=== PATIENT | female | born 1975 | race Caucasian/White ===

== ENCOUNTER → 2017-01-02 | Outpatient (CLI) | payer OTHER ==
--- NOTE | 2017-01-02 09:25 | REPMRS ---
Patient History The patient states she has not had a clinical breast exam in over a year. Family history of prostate cancer in paternal grandfather at age 90 and breast cancer in mother at age 66. Digital Mammo Screening Bilat: January 02, 2017 - Exam #: [id number] Bilateral CC and MLO view(s) were taken. Technologist: Millicent Almazan, Technologist No prior studies available for comparison. FINDINGS: There are scattered fibroglandular densities. Large coarse benign appearing calcifications are present.There is no evidence of cancer on this mammogram. ASSESSMENT: BI-RADS/ACR category 2 mammogram. Benign finding(s). Recommendation Routine screening mammogram of both breasts in 1 year (for women over age 40). This mammogram was interpreted with the aid of an FDA-approved computer-aided dectection system. Electronically Signed By: Ángel Green MD 01/02/17 0924
== END ==
LOC: M RAD 08:27
PROVIDERS: ATTEND Family Medicine
DX: Z12.31 Encounter for screening mammogram for malignant neoplasm of breast (principal); R92.8 Other abnormal and inconclusive findings on diagnostic imaging of breast

== ENCOUNTER 2018-07-28 08:31 | Day surgery (SDC) | payer OTHER ==
[2018-07-28] MEDS ORDERED: LR 1,000 ML IV ×2 (08:45→11:45)
[2018-07-28 09:11] LABS: HEMATOCRIT 42.3 % (36.0-47.0); HEMOGLOBIN 13.9 g/dl (12.0-15.5)
[2018-07-28] MEDS ORDERED: fentaNYL 100 MCG/2 ML INJECTION (J3010) As Ordered (09:25)
[2018-07-28] MEDS ORDERED: ONDANSETRON 4MG/2ML VIAL (J2405) As Ordered (09:25)
[2018-07-28] MEDS ORDERED: ROCURONIUM BROMIDE 50 MG/5 ML VIAL As Ordered (09:25)
[2018-07-28] MEDS ORDERED: KETOROLAC 60 MG/2 ML VIAL (J1885) As Ordered (09:25)
[2018-07-28] MEDS ORDERED: MIDAZOLAM INJ 2 MG/2 ML VIAL (J2250) As Ordered (09:25)
[2018-07-28] MEDS ORDERED: PROPOFOL 200 MG/20 ML VIAL As Ordered (09:25)
[2018-07-28] MEDS ORDERED: LIDOCAINE 2% INJ 100 MG/5 ML SDV (FOR ANES.) As Ordered (09:25)
[2018-07-28] MEDS ORDERED: dexameTHASONE 4 MG/ML 1ML VIAL (J1100) As Ordered (09:25)
[2018-07-28 09:43] LABS: CONTROL LINE HCG INT CTR LINE PRESENT; HCG, SERUM QUALITATIVE NEGATIVE (NEGATIVE)
[2018-07-28] MEDS ORDERED: METOCLOPRAMIDE INJ 10MG/2ML VIAL (J2765) As Ordered (10:31)
[2018-07-28] MEDS ORDERED: GLYCOPYRROLATE INJ 0.2 MG/ML 2 ML VIAL As Ordered (10:44)
[2018-07-28] MEDS ORDERED: HYDROmorphone HCL 2 MG/ML 1ML VIAL (J1170) As Ordered (10:44)
[2018-07-28] MEDS ORDERED: NEOSTIGMINE 10 MG/10 ML VIAL (J2710) As Ordered (10:44)
[2018-07-28] MEDS: BUPIVACAINE HCL 0.25% 30 ML VIAL As Ordered (11:10)
[2018-07-28] MEDS ORDERED: METOCLOPRAMIDE INJ 10MG/2ML VIAL (J2765) IV (11:45)
[2018-07-28] MEDS ORDERED: PERCOCET 5MG/325MG TAB PO (11:45)
[2018-07-28] MEDS ORDERED: fentaNYL 100 MCG/2 ML INJECTION (J3010) IV (11:45)
[2018-07-28] MEDS ORDERED: ONDANSETRON 4MG/2ML VIAL (J2405) IV (11:45)
[2018-07-28] MEDS ORDERED: MEPERIDINE INJ 25 MG/ML VIAL (J2175) IV (11:45)
== END 2018-07-28 12:30 | disposition home or self-care (01) ==
LOC: M SDC 08:31
DX: R10.2 Pelvic and perineal pain (principal); N94.10 Unspecified dyspareunia; F41.9 Anxiety disorder, unspecified; Z79.899 Other long term (current) drug therapy; E66.9 Obesity, unspecified
CPT/HCPCS: 49320

== ENCOUNTER → 2020-05-17 | Outpatient (CLI) | payer OTHER ==
[~2020-05-17] MED LIST: B-122500 PO; CITA40TA6 PO; CLAR10CA3 PO; D31000TA2 PO; FAMO20TA PO; MELO15TA28 PO; TRAM50TA2 PO
--- NOTE | 2020-05-17 10:28 | REPMRS ---
Patient History The patient states she has not had a clinical breast exam in over a year. Family history of breast cancer at age 66 in mother, prostate cancer at age 90 in paternal grandfather. Taking hormonal contraceptives for 27 years. Digital Woman Screen Mammo: May 17, 2020 - Exam #: [id number] Bilateral CC and MLO view(s) were taken. Technologist: Shellie Faustin, Technologist Prior study comparison: January 02, 2017, bilateral digital mammo screening bilat, performed at [facility]. FINDINGS: There are scattered fibroglandular densities. The Volpara volumetric breast density category is:B. There has been no change in the appearance of the mammogram from the prior studies. There is a mild amount of scattered fibroglandular density which is fairly symmetric. There is no interval development of dominant mass, architectural distortion, or grouped microcalcification suggestive of malignancy. 3-D tomosynthesis shows no additional findings. Assessment: BI-RADS/ACR category 1 mammogram. Negative Mammogram. Recommendation Routine screening mammogram of both breasts in 1 year (for women over age 40). This patient's Lifetime Breast Cancer Risk is estimated at 18.9 %. This mammogram was interpreted with the aid of an FDA-approved computer-aided dectection system. Electronically Signed By: Bhavesh Hinkle MD 05/17/20 [id number]
== END ==
LOC: M WHC 08:52
PROVIDERS: ATTEND Family Medicine
DX: Z12.31 Encounter for screening mammogram for malignant neoplasm of breast (principal); Z80.3 Family history of malignant neoplasm of breast; Z80.42 Family history of malignant neoplasm of prostate

== ENCOUNTER 2020-07-19 09:46 | Day surgery (SDC) | payer OTHER ==
[~2020-07-19] VITALS: Ht 177.8 cm; Wt 102.5 kg
[~2020-07-19 09:46] MED LIST changes: +LIDOCAINE 2% 100MG/5ML SDV (FOR ANES.) As Ordered ONE; +NS 1,000 ML IV ONE; +propofoL 200 MG/20 ML VIAL As Ordered ONE
--- NOTE | 2020-07-19 12:21 | ROOR ---
Patient Name: Candelaria Ramos Procedure Date: 07/19/2020 12:00 PM Date of : 1975 Age: 44 Room: [facility] Gender: Female Note Status: Finalized Procedure: Total Colonoscopy to Cecum + ileoscopy + Bx Indications: Change in bowel habits Providers: Jeff Mackey MD Referring MD: LULA COTTON MD Requesting Provider: Medicines: Monitored Anesthesia Care Complications: No immediate complications. Procedure: Pre-Anesthesia Assessment: - The heart rate, respiratory rate, oxygen saturations, blood pressure, adequacy of pulmonary ventilation, and response to care were monitored throughout the procedure. The Colonoscope was introduced through the anus and advanced to the terminal ileum, with identification of the appendiceal orifice and IC valve. The colonoscopy was performed without difficulty. The patient tolerated the procedure well. The quality of the bowel preparation was good. Findings: The perianal and digital rectal examinations were normal. Non-bleeding internal hemorrhoids were found during retroflexion. The hemorrhoids were small and Grade I (internal hemorrhoids that do not prolapse). No other significant abnormalities were identified in a careful examination of the remainder of the colon. The terminal ileum appeared normal. Biopsies for histology were taken with a cold forceps from the ascending colon, transverse colon and descending colon for evaluation of microscopic colitis. The exam was otherwise without abnormality. Impression: - Non-bleeding internal hemorrhoids. - The examined portion of the ileum was normal. - The examination was otherwise normal. - Biopsies were taken with a cold forceps from the ascending colon, transverse colon and descending colon for evaluation of microscopic colitis. - The exam was otherwise normal to the cecum. Recommendation: - Patient has a contact number available for emergencies. The signs and symptoms of potential delayed complications were discussed with the patient. Return to normal activities tomorrow. Written discharge instructions were provided to the patient. - High fiber diet. - Discharge patient to home. - Continue present medications. - Await pathology results. - Telephone GI clinic for pathology results in 1 week. - Repeat colonoscopy in 10 years for screening purposes. - Return to referring physician. - The findings and recommendations were discussed with the patient. Procedure Code(s): --- Professional --- 80748, Colonoscopy, flexible; with biopsy, single or multiple Diagnosis Code(s): --- Professional --- K64.0, First degree hemorrhoids R19.4, Change in bowel habit CPT copyright 2019 [employer]. All rights reserved. The codes documented in this report are preliminary and upon ripsaw grader review may be revised to meet current compliance requirements. Jeff Mackey MD Jeff Mackey MD 07/19/2020 12:21:05 PM Electronically signed by Jeff Mackey MD Number of Addenda: 0 Note Initiated On: 07/19/2020 12:00 PM Estimated Blood Loss: Estimated blood loss: none.
[2020-07-19 12:40] VITALS: BP 121/57
== END 2020-07-19 12:51 | disposition home or self-care (01) ==
LOC: M OPP 09:46
PROVIDERS: ATTEND Internal Medicine Gastroenterology
DX: K63.89 Other specified diseases of intestine (principal); K64.0 First degree hemorrhoids; R10.30 Lower abdominal pain, unspecified; K58.8 Other irritable bowel syndrome; Z79.899 Other long term (current) drug therapy

== ENCOUNTER → 2021-01-12 | Outpatient (CLI) | payer OTHER ==
[~2021-01-12] MED LIST changes: -LIDOCAINE 2% 100MG/5ML SDV (FOR ANES.) As Ordered ONE; -NS 1,000 ML IV ONE; -propofoL 200 MG/20 ML VIAL As Ordered ONE
[2021-01-12 13:54] LABS: BASO # 0.1 10^3/uL (0.0-0.2); BASO % 1.3 % (0.0-1.0); EOS # 0.2 10^3/uL (0.0-0.5); EOS % 3.5 % (0.0-3.0); HEMATOCRIT 44.1 % (36.0-47.0); HEMOGLOBIN 13.9 g/dl (12.0-15.5); LYMPH # 1.7 10^3/uL (1.5-5.0); LYMPH % 26.4 % (24.0-44.0); MEAN CORPUSCULAR HEMOGLOBIN 29.1 pg (27.0-33.0); MEAN CORPUSCULAR HGB CONC 31.5 g/dl (32.0-36.5); MEAN CORPUSCULAR VOLUME 92.5 fl (80.0-96.0); MONO # 0.4 10^3/uL (0.0-0.8); MONO % 6.3 % (2.0-8.0); NEUTROPHILS # 3.9 10^3/uL (1.5-8.5); NEUTROPHILS % 62.2 % (36.0-66.0); PLATELET COUNT, AUTOMATED 419 10^3/uL (150-450); RED BLOOD COUNT 4.77 10^6/uL (4.00-5.40); WHITE BLOOD COUNT 6.3 10^3/uL (4.0-10.0)
[2021-01-12 14:07] LABS: HEMOGLOBIN A1c 5.3 %
[2021-01-12 14:26] LABS: ALT/SGPT 27 U/L (12-78); BILIRUBIN,TOTAL 0.2 MG/DL (0.2-1.0); BLOOD UREA NITROGEN 13 MG/DL (7-18); CALCIUM LEVEL 9.4 MG/DL (8.5-10.1); CARBON DIOXIDE LEVEL 29 MEQ/L (21-32); CHLORIDE LEVEL 107 MEQ/L (98-107); CHOLESTEROL LEVEL 280 MG/DL (<200); CHOLESTEROL RISK RATIO 4.666 (<5); CREATININE FOR GFR 0.75 MG/DL (0.55-1.30); FREE T4 0.96 NG/DL (0.76-1.46); GLOMERULAR FILTRATION RATE > 60.0 (>58); GLUCOSE, FASTING 90 MG/DL (70-100); HDL CHOLESTEROL 60 MG/DL (>40); LDL CHOLESTEROL 187 MG/DL (<100); NON-HDL-C 220 MG/DL; POTASSIUM SERUM 4.4 MEQ/L (3.5-5.1); RHEUMATOID FACTOR QUANT < 10.0 IU/ML (<15.0); SODIUM LEVEL 140 MEQ/L (136-145); TOTAL PROTEIN 7.5 GM/DL (6.4-8.2); TRIGLYCERIDES LEVEL 163 MG/DL (<150)
[2021-01-12 14:27] LABS: TOTAL 25(OH) VITAMIN D 86.3 NG/ML (30.0-100.0)
[2021-01-12 14:30] LABS: ERYTHROCYTE SEDIMENTATION RATE 8 mm/hr (0-20)
[2021-01-13 14:08] LABS: ANTINUCLEAR ANTIBODIES DIRECT Negative (Negative)
== END ==
LOC: M PLALAB 09:32
PROVIDERS: ATTEND Psychiatry & Neurology Neurology
DX: E78.5 Hyperlipidemia, unspecified (principal); E11.9 Type 2 diabetes mellitus without complications; E55.9 Vitamin D deficiency, unspecified; R51.9 Headache, unspecified

== ENCOUNTER 2023-10-05 08:39 | Observation (INO) | payer OTHER, SELFPAY ==
[~2023-10-05] VITALS: Ht 177.8 cm; Wt 95.3 kg
[~2023-10-05 08:39] MED LIST changes: -D31000TA2 PO; +VITA100093 PO
[2023-10-05] MEDS ORDERED: TIZA2CAP PO (08:46)
[2023-10-05 09:36] LABS: BASO # 0.1 10^3/uL (0.0-0.2); BASO % 0.4 % (0.0-1.0); EOS # 0.1 10^3/uL (0.0-0.5); EOS % 0.8 % (0.0-3.0); HEMOGLOBIN 13.4 g/dl (12.0-15.5); LYMPH # 2.1 10^3/uL (1.5-5.0); LYMPH % 13.4 % (24.0-44.0); MEAN CORPUSCULAR HGB CONC 32.7 g/dl (32.0-36.5); MEAN CORPUSCULAR VOLUME 88.7 fl (80.0-96.0); MONO # 1.1 10^3/uL (0.0-0.8); MONO % 6.8 % (2.0-8.0); NEUTROPHILS # 12.2 10^3/uL (1.5-8.5); NEUTROPHILS % 78.2 % (36.0-66.0); PLATELET COUNT, AUTOMATED 448 10^3/uL (150-450); RED BLOOD COUNT 4.62 10^6/uL (4.00-5.40); WHITE BLOOD COUNT 15.6 10^3/uL (4.0-10.0)
[2023-10-05 10:06] LABS: HCG, SERUM QUALITATIVE NEGATIVE (NEGATIVE)
[2023-10-05 10:07] LABS: BLOOD UREA NITROGEN 10 MG/DL (9-23); CARBON DIOXIDE LEVEL 26 MMOL/L (20-31); CHLORIDE LEVEL 103 MMOL/L (98-107); CREATININE FOR GFR 0.66 MG/DL (0.55-1.30); GLOMERULAR FILTRATION RATE > 60.0 (>58); GLUCOSE, FASTING 97 MG/DL (60-100); POTASSIUM SERUM 4.5 MMOL/L (3.5-5.1); SODIUM LEVEL 137 MMOL/L (136-145)
[2023-10-05] MEDS ORDERED: ISOVUE-370 76% 100ML VIAL As Ordered ONE (10:26)
[2023-10-05] MEDS: GASTROGRAFIN SOLUTION 30ML PO SCH (12:27)
[2023-10-05] MEDS ORDERED: metroNIDAZOLE 500 MG in IV 1 EA IV ONE (14:35)
[2023-10-05] MEDS ORDERED: CIPROFLOXACIN 400 MG in IV 1 EA IV ONE (14:35)
[2023-10-05] MEDS ORDERED: TRAM50TA2 PO (15:14)
[2023-10-05] MEDS: ONDANSETRON 4MG 2ML VIAL IV ONE (15:15)
[2023-10-05] MEDS ORDERED: HOME MED LIST COMPLETE! XX SCH (15:15)
[2023-10-05] MEDS: MORPHINE 4 MG/ML 1ML VIAL IV PRN (15:15)
[2023-10-05] MEDS ORDERED: ONDANSETRON 4MG 2ML VIAL IV PRN (15:35)
[2023-10-05] MEDS: PANTOPRAZOLE 40MG VIAL IV SCH (16:15)
[2023-10-05] MEDS: NS 1,000 ML IV ONE ×2 (16:15→17:25)
[2023-10-05 17:00] VITALS: BP 126/81; TEMP 97.7; O2SAT 96
[2023-10-05] MEDS: MORPHINE 2 MG/ML 1ML VIAL IV PRN (17:28)
[2023-10-05] MEDS: PIPERACILLIN/TAZOBACTAM SOD 3.375 GM in D5W MINI-BAG PLUS 50 ML IV SCH (17:41)
[2023-10-05 20:24] VITALS: BP 118/61; TEMP 97.7; O2SAT 96
[2023-10-05 20:54] VITALS: BP 126/81; TEMP 98.2; O2SAT 96
[2023-10-06] MEDS: ACETAMINOPHEN TAB 650MG DOSE (2X325MG) PO PRN (01:11)
[2023-10-06 06:26] VITALS: BP 119/80; TEMP 98.1; O2SAT 99
[2023-10-06 06:27] LABS: HEMATOCRIT 38.4 % (36.0-47.0); HEMOGLOBIN 12.6 g/dl (12.0-15.5); MEAN CORPUSCULAR HEMOGLOBIN 29.2 pg (27.0-33.0); MEAN CORPUSCULAR HGB CONC 32.8 g/dl (32.0-36.5); MEAN CORPUSCULAR VOLUME 88.9 fl (80.0-96.0); PLATELET COUNT, AUTOMATED 391 10^3/uL (150-450); RED BLOOD COUNT 4.32 10^6/uL (4.00-5.40); WHITE BLOOD COUNT 11.3 10^3/uL (4.0-10.0)
[2023-10-06 07:10] LABS: BLOOD UREA NITROGEN 6 MG/DL (9-23); CALCIUM LEVEL 8.8 MG/DL (8.5-10.1); CARBON DIOXIDE LEVEL 28 MMOL/L (20-31); CHLORIDE LEVEL 105 MMOL/L (98-107); CREATININE FOR GFR 0.67 MG/DL (0.55-1.30); GLOMERULAR FILTRATION RATE > 60.0 (>58); GLUCOSE, FASTING 103 MG/DL (60-100); POTASSIUM SERUM 4.2 MMOL/L (3.5-5.1); SODIUM LEVEL 138 MMOL/L (136-145)
[2023-10-06] MEDS: ENOXAPARIN 40MG/0.4ML SYRINGE (J1650 PER 10MG) SC SCH (08:47)
[2023-10-06] MEDS ORDERED: CIPR-249 PO (11:12)
[2023-10-06] MEDS ORDERED: METR-265 PO (11:12)
[2023-10-06] MEDS ORDERED: OMEP40CA4 PO (11:13)
[2023-10-06] MEDS ORDERED: TRAM50TA2 PO (13:00)
== END 2023-10-06 14:45 | disposition home or self-care (01) ==
LOC: M ED 08:39 → INTOOBSV 15:34 → M ED INP 15:34 → M MS5PR 16:45
PROVIDERS: ADMIT Internal Medicine; ATTEND Internal Medicine
DX: A41.9 Sepsis, unspecified organism (principal); K57.32 Diverticulitis of large intestine without perforation or abscess without bleeding; Z79.2 Long term (current) use of antibiotics; Z79.899 Other long term (current) drug therapy; G89.29 Other chronic pain; M54.50 Low back pain, unspecified
CPT/HCPCS: 36415; 74177; 80048; 81001; 83605; 84703; 85025; 85027; 87040; 87086; 87635; 96365; 96366; 96375; 96376; 99285; C9113; J2405; J2543; Q9963; Q9967

== ENCOUNTER 2024-03-26 05:37 | Emergency (ER) | payer OTHER ==
[~2024-03-26] VITALS: Ht 177.8 cm; Wt 92.6 kg
[~2024-03-26 05:37] MED LIST changes: +CIPR-249 PO; +METR-265 PO; +OMEP40CA4 PO; +TIZA2CAP PO
[2024-03-26 06:29] LABS: BASO % 0.3 % (0.0-1.0); EOS # 0.2 10^3/uL (0.0-0.5); EOS % 1.6 % (0.0-3.0); HEMATOCRIT 39.8 % (36.0-47.0); HEMOGLOBIN 13.8 g/dl (12.0-15.5); LYMPH # 1.6 10^3/uL (1.5-5.0); LYMPH % 11.8 % (24.0-44.0); MEAN CORPUSCULAR HEMOGLOBIN 29.7 pg (27.0-33.0); MEAN CORPUSCULAR HGB CONC 34.7 g/dl (32.0-36.5); MEAN CORPUSCULAR VOLUME 85.6 fl (80.0-96.0); MONO # 0.9 10^3/uL (0.0-0.8); MONO % 6.2 % (2.0-8.0); NEUTROPHILS % 79.7 % (36.0-66.0); PLATELET COUNT, AUTOMATED 400 10^3/uL (150-450); RED BLOOD COUNT 4.65 10^6/uL (4.00-5.40); WHITE BLOOD COUNT 13.7 10^3/uL (4.0-10.0)
[2024-03-26 06:53] LABS: LIPASE 28 U/L (12-53)
[2024-03-26 06:55] LABS: ALBUMIN 3.7 G/DL (3.2-5.2); ALKALINE PHOSPHATASE 84 U/L (46-116); ALT/SGPT 18 U/L (7.0-40); AST/SGOT 8 U/L (<34); BILIRUBIN,DIRECT 0.2 MG/DL (<0.4); BILIRUBIN,TOTAL 0.7 MG/DL (0.3-1.2); BLOOD UREA NITROGEN 9 MG/DL (9-23); CALCIUM LEVEL 9.1 MG/DL (8.5-10.1); CARBON DIOXIDE LEVEL 23 MMOL/L (20-31); CHLORIDE LEVEL 104 MMOL/L (98-107); CREATININE FOR GFR 0.68 MG/DL (0.55-1.30); GLOMERULAR FILTRATION RATE > 60.0 (>58); GLUCOSE, FASTING 121 MG/DL (60-100); POTASSIUM SERUM 3.8 MMOL/L (3.5-5.1); SODIUM LEVEL 136 MMOL/L (136-145); TOTAL PROTEIN 7.1 G/DL (5.7-8.2)
[2024-03-26] MEDS: NS 1,000 ML IV ONE (07:35)
[2024-03-26] MEDS: KETOROLAC 30 MG/ML 1ML VIAL IV ONE (07:35)
[2024-03-26] MEDS: ACETAMINOPHEN *IV* 1,000 MG in IV 1 EA IV ONE (07:35)
[2024-03-26] MEDS ORDERED: fentaNYL 100 MCG/2 ML INJECTION IM ONE (08:10)
[2024-03-26 08:51] LABS: HCG, SERUM QUALITATIVE NEGATIVE (NEGATIVE)
[2024-03-26] MEDS ORDERED: ISOVUE-370 76% 100ML VIAL As Ordered ONE (08:56)
[2024-03-26] MEDS ORDERED: HOME MED LIST COMPLETE! XX SCH (10:45)
[2024-03-26 12:15] VITALS: BP 123/71; TEMP 97.2; O2SAT 96
[2024-03-26] MEDS: AUGMENTIN 875 MG TAB PO ONE (12:30)
[2024-03-26 13:55] LABS: APPEARANCE, URINE CLEAR (CLEAR); BACTERIA, URINE AUTO NEGATIVE (NEGATIVE); BILIRUBIN, URINE AUTO NEGATIVE (NEGATIVE); BLOOD, URINE BLOOD 2+ (NEGATIVE); COLOR, URINE YELLOW (YELLOW); GLUCOSE, URINE (UA) AUTO NEGATIVE (NEGATIVE); KETONE, URINE AUTO 2+ mg/dL (NEGATIVE); LEUKOCYTE ESTERASE, URINE AUTO NEGATIVE (NEGATIVE); MUCUS, URINE SMALL (NEGATIVE); NITRITE, URINE AUTO NEGATIVE (NEGATIVE); PROTEIN, URINE AUTO NEGATIVE (NEGATIVE); RBC, URINE AUTO 6 /HPF (0-3); SQUAMOUS EPITHELIAL CELL UR AU 6 /HPF (0-6); WBC, URINE AUTO 9 /HPF (0-3)
[2024-03-26 14:01] LABS: SPECIFIC GRAVITY URINE AUTO >1.060 (1.002-1.035)
[2024-03-26] MEDS ORDERED: AMOX875T PO (14:11)
== END 2024-03-26 14:30 | disposition home or self-care (01) ==
LOC: M ED 05:37
DX: K57.90 Diverticulosis of intestine, part unspecified, without perforation or abscess without bleeding (principal); I95.9 Hypotension, unspecified; K21.9 Gastro-esophageal reflux disease without esophagitis; K58.0 Irritable bowel syndrome with diarrhea; Z79.1 Long term (current) use of non-steroidal anti-inflammatories (NSAID); Z79.899 Other long term (current) drug therapy
CPT/HCPCS: 74177; 80048; 80076; 81001; 83690; 84703; 85025; 96374; 99283; J0131; J1885; Q9967

== ENCOUNTER 2024-06-12 09:16 | Inpatient (IN) | payer OTHER ==
[~2024-06-12] VITALS: Ht 177.8 cm; Wt 95.0 kg
[~2024-06-12 09:16] MED LIST changes: +AMOX875T PO
[2024-06-12] MEDS: ONDANSETRON 4MG 2ML VIAL IV ONE (10:03)
[2024-06-12] MEDS: MORPHINE 4 MG/ML 1ML VIAL IV ONE (10:04)
[2024-06-12 10:13] LABS: BASO # 0.1 10^3/uL (0.0-0.2); BASO % 0.3 % (0.0-1.0); EOS % 0.1 % (0.0-3.0); HEMATOCRIT 41.2 % (36.0-47.0); HEMOGLOBIN 14.3 g/dl (12.0-15.5); LYMPH # 1.3 10^3/uL (1.5-5.0); LYMPH % 7.4 % (24.0-44.0); MEAN CORPUSCULAR HEMOGLOBIN 29.5 pg (27.0-33.0); MEAN CORPUSCULAR HGB CONC 34.7 g/dl (32.0-36.5); MEAN CORPUSCULAR VOLUME 85.1 fl (80.0-96.0); MONO % 5.4 % (2.0-8.0); NEUTROPHILS # 15.2 10^3/uL (1.5-8.5); NEUTROPHILS % 86.3 % (36.0-66.0); PLATELET COUNT, AUTOMATED 542 10^3/uL (150-450); RED BLOOD COUNT 4.84 10^6/uL (4.00-5.40); WHITE BLOOD COUNT 17.6 10^3/uL (4.0-10.0)
[2024-06-12] MEDS ORDERED: ISOVUE-370 76% 100ML VIAL As Ordered ONE (10:23)
[2024-06-12 10:37] LABS: LIPASE 28 U/L (12-53)
[2024-06-12 10:39] LABS: AMYLASE 28 U/L (30-118)
[2024-06-12 10:40] LABS: ALBUMIN 3.3 G/DL (3.2-5.2); ALKALINE PHOSPHATASE 105 U/L (46-116); ALT/SGPT 15 U/L (7.0-40); AST/SGOT 10 U/L (<34); BILIRUBIN,DIRECT 0.3 MG/DL (<0.4); BILIRUBIN,TOTAL 0.7 MG/DL (0.3-1.2); BLOOD UREA NITROGEN 10 MG/DL (9-23); CALCIUM LEVEL 9.9 MG/DL (8.5-10.1); CARBON DIOXIDE LEVEL 22 MMOL/L (20-31); CHLORIDE LEVEL 99 MMOL/L (98-107); CREATININE FOR GFR 0.76 MG/DL (0.55-1.30); GLOMERULAR FILTRATION RATE > 60.0 (>58); GLUCOSE, FASTING 127 MG/DL (60-100); POTASSIUM SERUM 3.8 MMOL/L (3.5-5.1); SODIUM LEVEL 133 MMOL/L (136-145); TOTAL PROTEIN 7.6 G/DL (5.7-8.2)
[2024-06-12] MEDS: NS 1,000 ML IV ONE ×3 (11:08→14:34)
[2024-06-12] MEDS: PIPERACILLIN/TAZOBACTAM SOD 4.5 GM in D5W MINI-BAG PLUS 50 ML IV ONE (11:33)
[2024-06-12] MEDS ORDERED: RIBO25TA PO (11:54)
[2024-06-12] MEDS ORDERED: K 10100T PO (11:54)
[2024-06-12] MEDS ORDERED: HOME MED LIST COMPLETE! XX SCH (11:55)
[2024-06-12] MEDS: ACETAMINOPHEN 325 MG TAB PO PRN (12:16)
[2024-06-12] MEDS ORDERED: HYDROMORPHONE HCL 0.5 MG/ 0.5 ML SYRINGE IV PRN ×2 (14:05→14:20)
[2024-06-12] MEDS ORDERED: tiZANidine 4 MG TAB PO PRN (14:05)
[2024-06-12] MEDS ORDERED: traMADol 50 MG TAB PO PRN (14:05)
[2024-06-12] MEDS ORDERED: ONDANSETRON 4MG 2ML VIAL IV PRN (14:05)
[2024-06-12] MEDS ORDERED: PILL CUTTER 1 EACH XX PRN (14:10)
[2024-06-12] MEDS ORDERED: NALOXONE INJ 0.4MG/1ML VIAL IV PRN (14:20)
[2024-06-12] MEDS: NS 1,000 ML IV SCH (14:33)
[2024-06-12] MEDS: KETOROLAC 30 MG/ML 1ML VIAL IV ONE (14:34)
[2024-06-12] MEDS: PIPERACILLIN/TAZOBACTAM SOD 4.5 GM in D5W MINI-BAG PLUS 50 ML IV SCH (17:09)
[2024-06-12 17:25] VITALS: BP 117/60; TEMP 99.3; O2SAT 94
[2024-06-12] MEDS: KETOROLAC 30 MG/ML 1ML VIAL IV SCH (20:04)
[2024-06-12 20:07] VITALS: BP 131/70; TEMP 99.5; O2SAT 97
[2024-06-13 03:58] VITALS: BP 127/66; TEMP 99.5; O2SAT 96
[2024-06-13 04:05] VITALS: TEMP 98.6; O2SAT 96
[2024-06-13 07:25] LABS: BASO # 0.1 10^3/uL (0.0-0.2); BASO % 0.5 % (0.0-1.0); EOS # 0.1 10^3/uL (0.0-0.5); EOS % 0.9 % (0.0-3.0); HEMATOCRIT 35.5 % (36.0-47.0); LYMPH # 1.1 10^3/uL (1.5-5.0); LYMPH % 7.2 % (24.0-44.0); MEAN CORPUSCULAR HEMOGLOBIN 29.7 pg (27.0-33.0); MEAN CORPUSCULAR HGB CONC 34.1 g/dl (32.0-36.5); MEAN CORPUSCULAR VOLUME 87.2 fl (80.0-96.0); MONO # 1.2 10^3/uL (0.0-0.8); MONO % 8.2 % (2.0-8.0); NEUTROPHILS # 12.1 10^3/uL (1.5-8.5); NEUTROPHILS % 82.7 % (36.0-66.0); RED BLOOD COUNT 4.07 10^6/uL (4.00-5.40); WHITE BLOOD COUNT 14.6 10^3/uL (4.0-10.0)
[2024-06-13 07:27] LABS: HEMOGLOBIN 12.1 g/dl (12.0-15.5)
[2024-06-13 07:28] LABS: PLATELET COUNT, AUTOMATED 412 10^3/uL (150-450)
[2024-06-13 07:32] LABS: BLOOD UREA NITROGEN 6 MG/DL (9-23); CALCIUM LEVEL 8.3 MG/DL (8.5-10.1); CARBON DIOXIDE LEVEL 22 MMOL/L (20-31); CHLORIDE LEVEL 106 MMOL/L (98-107); CREATININE FOR GFR 0.57 MG/DL (0.55-1.30); GLOMERULAR FILTRATION RATE > 60.0 (>58); GLUCOSE, FASTING 84 MG/DL (60-100); POTASSIUM SERUM 3.7 MMOL/L (3.5-5.1); SODIUM LEVEL 137 MMOL/L (136-145)
[2024-06-13 12:00] VITALS: BP 133/62; TEMP 98.6; O2SAT 98
[2024-06-13 19:55] VITALS: BP 119/60; TEMP 99.3; O2SAT 96
[2024-06-14 04:00] VITALS: BP 126/69; TEMP 98.5; O2SAT 96
[2024-06-14 08:21] LABS: BASO % 0.3 % (0.0-1.0); EOS # 0.1 10^3/uL (0.0-0.5); EOS % 0.7 % (0.0-3.0); HEMATOCRIT 33.9 % (36.0-47.0); HEMOGLOBIN 11.8 g/dl (12.0-15.5); LYMPH # 1.1 10^3/uL (1.5-5.0); LYMPH % 7.7 % (24.0-44.0); MEAN CORPUSCULAR HEMOGLOBIN 29.6 pg (27.0-33.0); MEAN CORPUSCULAR HGB CONC 34.8 g/dl (32.0-36.5); MEAN CORPUSCULAR VOLUME 85.2 fl (80.0-96.0); MONO # 1.2 10^3/uL (0.0-0.8); MONO % 8.9 % (2.0-8.0); NEUTROPHILS # 11.1 10^3/uL (1.5-8.5); NEUTROPHILS % 81.5 % (36.0-66.0); PLATELET COUNT, AUTOMATED 410 10^3/uL (150-450); RED BLOOD COUNT 3.98 10^6/uL (4.00-5.40); WHITE BLOOD COUNT 13.6 10^3/uL (4.0-10.0)
[2024-06-14 08:49] LABS: BLOOD UREA NITROGEN < 5 MG/DL (9-23); CALCIUM LEVEL 8.6 MG/DL (8.5-10.1); CARBON DIOXIDE LEVEL 24 MMOL/L (20-31); CHLORIDE LEVEL 102 MMOL/L (98-107); CREATININE FOR GFR 0.62 MG/DL (0.55-1.30); GLOMERULAR FILTRATION RATE > 60.0 (>58); GLUCOSE, FASTING 89 MG/DL (60-100); POTASSIUM SERUM 3.4 MMOL/L (3.5-5.1); SODIUM LEVEL 136 MMOL/L (136-145)
[2024-06-14 12:00] VITALS: BP 137/74; TEMP 99.1; O2SAT 95
[2024-06-14] MEDS: POTASSIUM CHLORIDE 10MEQ SR TABLET PO ONE (17:26)
[2024-06-14 19:39] VITALS: BP 122/68; TEMP 98.6; O2SAT 96
[2024-06-14 23:30] VITALS: BP 139/79; TEMP 97.8; O2SAT 98
[2024-06-15] MEDS: AUGMENTIN 875 MG TAB PO SCH (06:24)
[2024-06-15 08:04] LABS: BASO # 0.1 10^3/uL (0.0-0.2); BASO % 0.6 % (0.0-1.0); EOS # 0.2 10^3/uL (0.0-0.5); EOS % 1.8 % (0.0-3.0); HEMATOCRIT 33.3 % (36.0-47.0); HEMOGLOBIN 11.3 g/dl (12.0-15.5); LYMPH # 1.4 10^3/uL (1.5-5.0); LYMPH % 11.5 % (24.0-44.0); MEAN CORPUSCULAR HEMOGLOBIN 28.5 pg (27.0-33.0); MEAN CORPUSCULAR HGB CONC 33.9 g/dl (32.0-36.5); MEAN CORPUSCULAR VOLUME 84.1 fl (80.0-96.0); MONO % 7.9 % (2.0-8.0); NEUTROPHILS # 9.7 10^3/uL (1.5-8.5); NEUTROPHILS % 77.6 % (36.0-66.0); PLATELET COUNT, AUTOMATED 441 10^3/uL (150-450); RED BLOOD COUNT 3.96 10^6/uL (4.00-5.40); WHITE BLOOD COUNT 12.6 10^3/uL (4.0-10.0)
[2024-06-15 08:15] VITALS: BP 127/80; TEMP 97.8; O2SAT 97
[2024-06-15 08:31] LABS: BLOOD UREA NITROGEN 5 MG/DL (9-23); CALCIUM LEVEL 8.9 MG/DL (8.5-10.1); CARBON DIOXIDE LEVEL 26 MMOL/L (20-31); CHLORIDE LEVEL 103 MMOL/L (98-107); CREATININE FOR GFR 0.51 MG/DL (0.55-1.30); GLOMERULAR FILTRATION RATE > 60.0 (>58); GLUCOSE, FASTING 125 MG/DL (60-100); POTASSIUM SERUM 3.2 MMOL/L (3.5-5.1); SODIUM LEVEL 137 MMOL/L (136-145)
[2024-06-15] MEDS ORDERED: MAG SULF 1GM/100ML (MAG RUN) 1 GM in IV 1 EA IV ONE (11:30)
[2024-06-15] MEDS ORDERED: METR-265 PO (11:34)
[2024-06-15] MEDS ORDERED: LEVO1TAB40 PO (11:34)
[2024-06-15] MEDS ORDERED: SIME80CH6 PO (11:34)
[2024-06-15] MEDS ORDERED: DULC10SU2 PR (11:34)
[2024-06-15] MEDS ORDERED: PERC5TAB12 PO (11:34)
[2024-06-15] MEDS: POTASSIUM CHLORIDE 10MEQ SR TABLET PO ONE (12:06)
[2024-06-15] MEDS: MAGNESIUM OXIDE 400MG TAB (MAG-OX) PO ONE (12:07)
[2024-06-15] MEDS ORDERED: LevoFLOXacin 750 MG TABLET PO SCH (12:15)
[2024-06-15] MEDS ORDERED: metroNIDAZOLE (FLAGYL) 500MG TABLET PO SCH (12:15)
== END 2024-06-15 12:20 | disposition home or self-care (01) | DRG 872 ==
LOC: M ED 09:16 → M ED INP 11:23 → M MS4PR 17:25 → M PED 06-14 23:23
PROVIDERS: ADMIT General Practice; ATTEND General Practice
DX: A41.9 Sepsis, unspecified organism (principal); K57.32 Diverticulitis of large intestine without perforation or abscess without bleeding; K52.9 Noninfective gastroenteritis and colitis, unspecified; E66.9 Obesity, unspecified; E87.6 Hypokalemia; Z68.30 Body mass index [BMI] 30.0-30.9, adult; E83.51 Hypocalcemia; D64.9 Anemia, unspecified; Z79.899 Other long term (current) drug therapy

== ENCOUNTER 2024-10-13 07:14 | Day surgery (SDC) | payer OTHER ==
[~2024-10-13] VITALS: Ht 177.8 cm; Wt 96.0 kg
[~2024-10-13 07:14] MED LIST changes: +DULC10SU2 PR; +K 10100T PO; +LEVO1TAB40 PO; +OREG1CAP PO; +PERC5TAB12 PO; +PROBCAP14 PO; +RIBO25TA PO; +SIME80CH6 PO; +[UNRECOGNIZED DRUG - OTHER]; +holy basil
[2024-10-13] MEDS ORDERED: LIDOCAINE 2% 100MG/5ML SDV (FOR ANES.) As Ordered ONE (08:07)
[2024-10-13] MEDS ORDERED: propofoL 200 MG/20 ML VIAL As Ordered ONE (08:07)
[2024-10-13 09:08] VITALS: TEMP 97.5
[2024-10-13 09:33] VITALS: BP 143/83; O2SAT 95
== END 2024-10-13 09:33 | disposition home or self-care (01) ==
LOC: M OPP 07:14
PROVIDERS: ATTEND Surgery
DX: Z12.11 Encounter for screening for malignant neoplasm of colon (principal); K64.0 First degree hemorrhoids; Z79.891 Long term (current) use of opiate analgesic; Z79.899 Other long term (current) drug therapy

== ENCOUNTER 2025-01-14 07:48 | Emergency (ER) | payer OTHER ==
[~2025-01-14] VITALS: Ht 177.8 cm; Wt 99.6 kg
[2025-01-14 08:48] LABS: BASO # 0.1 10^3/uL (0.0-0.2); BASO % 0.5 % (0.0-1.0); EOS # 0.1 10^3/uL (0.0-0.5); EOS % 0.9 % (0.0-3.0); HEMOGLOBIN 14.4 g/dl (12.0-15.5); LYMPH # 0.7 10^3/uL (1.5-5.0); MEAN CORPUSCULAR HEMOGLOBIN 28.9 pg (27.0-33.0); MEAN CORPUSCULAR HGB CONC 33.5 g/dl (32.0-36.5); MEAN CORPUSCULAR VOLUME 86.3 fl (80.0-96.0); MONO # 0.5 10^3/uL (0.0-0.8); MONO % 3.9 % (2.0-8.0); NEUTROPHILS # 12.4 10^3/uL (1.5-8.5); NEUTROPHILS % 89.3 % (36.0-66.0); PLATELET COUNT, AUTOMATED 407 10^3/uL (150-450); RED BLOOD COUNT 4.98 10^6/uL (4.00-5.40); WHITE BLOOD COUNT 13.8 10^3/uL (4.0-10.0)
[2025-01-14] MEDS: MORPHINE 4 MG/ML 1ML VIAL IV ONE (09:00)
[2025-01-14] MEDS: ONDANSETRON 4MG 2ML VIAL IV ONE (09:00)
[2025-01-14] MEDS: NS (Normal Saline) 0.9% 1,000 ML IV ONE (09:01)
[2025-01-14] MEDS ORDERED: ISOVUE-370 76% 100ML VIAL As Ordered ONE (09:04)
[2025-01-14 09:26] LABS: LIPASE 29 U/L (12-53)
[2025-01-14 09:29] LABS: ALBUMIN 3.8 G/DL (3.2-5.2); ALKALINE PHOSPHATASE 80 U/L (35-104); ALT/SGPT 16 U/L (7.0-40); AST/SGOT 17 U/L (<34); BILIRUBIN,DIRECT 0.2 MG/DL (<0.4); BILIRUBIN,TOTAL 0.8 MG/DL (0.3-1.2); BLOOD UREA NITROGEN 11 MG/DL (9-23); CALCIUM LEVEL 9.2 MG/DL (8.5-10.1); CARBON DIOXIDE LEVEL 21 MMOL/L (20-31); CHLORIDE LEVEL 102 MMOL/L (98-107); CREATININE FOR GFR 0.68 MG/DL (0.55-1.30); GLOMERULAR FILTRATION RATE > 90.0 (>51); GLUCOSE, FASTING 139 MG/DL (60-100); POTASSIUM SERUM 4.3 MMOL/L (3.5-5.1); SODIUM LEVEL 135 MMOL/L (136-145); TOTAL PROTEIN 7.5 G/DL (5.7-8.2)
[2025-01-14] MEDS ORDERED: CIPR-249 PO (10:12)
[2025-01-14] MEDS ORDERED: METR-265 PO (10:12)
[2025-01-14] MEDS: cefTRIAXone SOD 2 GM in DEXTROSE 5% (D5W) ADV/MINI-BAG 50 ML IV ONE (10:44)
[2025-01-14] MEDS: ACETAMINOPHEN 500 MG TAB PO ONE (11:29)
[2025-01-14 11:33] VITALS: BP 119/71; TEMP 100.2; O2SAT 94
[2025-01-15] MEDS ORDERED: TRAM50TA2 PO (09:14)
[2025-01-15] MEDS ORDERED: PERC5TAB12 PO (13:25)
== END 2025-01-14 11:38 | disposition home or self-care (01) ==
LOC: M ED 07:48
DX: K57.30 Diverticulosis of large intestine without perforation or abscess without bleeding (principal); F10.10 Alcohol abuse, uncomplicated; Z87.42 Personal history of other diseases of the female genital tract; Z97.5 Presence of (intrauterine) contraceptive device; Z79.83 Long term (current) use of bisphosphonates; Z79.899 Other long term (current) drug therapy
CPT/HCPCS: 74177; 80047; 80048; 80076; 83690; 85025; 93041; 99284; J0696; J2405; Q9967

== ENCOUNTER 2025-01-15 08:49 | Emergency (ER) | payer OTHER ==
[~2025-01-15] VITALS: Ht 177.8 cm; Wt 95.3 kg
[2025-01-15] MEDS ORDERED: TRAM50TA2 PO (09:14)
[2025-01-15 10:52] LABS: BASO # 0.1 10^3/uL (0.0-0.2); BASO % 0.7 % (0.0-1.0); EOS % 0.3 % (0.0-3.0); LYMPH # 0.7 10^3/uL (1.5-5.0); LYMPH % 7.3 % (24.0-44.0); MONO # 0.5 10^3/uL (0.0-0.8); MONO % 5.2 % (2.0-8.0); NEUTROPHILS # 7.8 10^3/uL (1.5-8.5); NEUTROPHILS % 86.1 % (36.0-66.0)
[2025-01-15] MEDS: MORPHINE 4 MG/ML 1ML VIAL IV ONE (11:42)
[2025-01-15] MEDS: ONDANSETRON 4MG 2ML VIAL IV ONE (11:42)
[2025-01-15] MEDS ORDERED: PERC5TAB12 PO (13:25)
[2025-01-15 13:59] VITALS: BP 129/64; TEMP 98.4; O2SAT 98
== END 2025-01-15 14:00 | disposition home or self-care (01) ==
LOC: M ED 08:49
DX: K57.30 Diverticulosis of large intestine without perforation or abscess without bleeding (principal); F10.10 Alcohol abuse, uncomplicated; K21.9 Gastro-esophageal reflux disease without esophagitis; F41.9 Anxiety disorder, unspecified; Z79.2 Long term (current) use of antibiotics; Z79.899 Other long term (current) drug therapy
CPT/HCPCS: 83605; 85025; 96374; 99284; J2405

== ENCOUNTER 2025-03-14 06:24 | Inpatient (IN) | payer OTHER ==
[~2025-03-14] VITALS: Ht 177.8 cm; Wt 90.9 kg
[~2025-03-14 06:24] MED LIST changes: +AMOX875T2 PO; +CEFD1CAP9 PO; +CIPR500T39; +FIBE625T PO; +K2 P1TAB PO; +PRED50TA57 PO; +PROB250C PO; +PROM12.56 PO
[2025-03-14 07:13] LABS: BASO # 0.1 10^3/uL (0.0-0.2); BASO % 0.6 % (0.0-1.0); EOS # 0.4 10^3/uL (0.0-0.5); EOS % 3.2 % (0.0-3.0); LYMPH # 1.7 10^3/uL (1.5-5.0); LYMPH % 14.3 % (24.0-44.0); MONO # 0.5 10^3/uL (0.0-0.8); MONO % 4.4 % (2.0-8.0); NEUTROPHILS # 9.0 10^3/uL (1.5-8.5); NEUTROPHILS % 77.0 % (36.0-66.0); PLATELET COUNT, AUTOMATED 447 10^3/uL (150-450)
[2025-03-14 07:38] LABS: ALT/SGPT 30 U/L (7.0-40); AST/SGOT 49 U/L (<34)
[2025-03-14 07:47] LABS: C REACTIVE PROTEIN QUANTITATIV 0.95 MG/DL (<1.0)
[2025-03-14] MEDS: ONDANSETRON 4MG 2ML VIAL IV ONE (07:48)
[2025-03-14] MEDS: MORPHINE 4 MG/ML 1 ML VIAL IV PRN ×2 (07:49→16:53)
[2025-03-14] MEDS: NS (Normal Saline) 0.9% 1,000 ML IV SCH (07:49)
[2025-03-14] MEDS ORDERED: GNP1000C11 PO (08:25)
[2025-03-14] MEDS ORDERED: PEPE50CA PO (08:25)
[2025-03-14] MEDS ORDERED: HOME MED LIST COMPLETE! XX SCH (08:25)
[2025-03-14] MEDS ORDERED: OLIVE OIL PO (08:25)
[2025-03-14] MEDS ORDERED: MESA400C2 PO (08:25)
[2025-03-14 08:30] LABS: CALCIUM LEVEL 8.8 MG/DL (8.5-10.1); CARBON DIOXIDE LEVEL 23 MMOL/L (20-31); CHLORIDE LEVEL 102 MMOL/L (98-107); CREATININE FOR GFR 0.70 MG/DL (0.55-1.30); GLOMERULAR FILTRATION RATE > 90.0 (>51); SODIUM LEVEL 140 MMOL/L (136-145)
[2025-03-14] MEDS: GASTROGRAFIN SOLUTION 30ML PO SCH (08:33)
[2025-03-14] MEDS ORDERED: ISOVUE-370 76% 100 ML VIAL As Ordered ONE (09:58)
[2025-03-14 10:17] LABS: KETONE, URINE AUTO RFX NEGATIVE (NEGATIVE); LEUKOCYTE ESTERASE UR AUTO RFX NEGATIVE (NEGATIVE); NITRITE, URINE AUTO RFX NEGATIVE (NEGATIVE); RBC, URINE AUTO RFX 0 /HPF (0-3); SQUAM EPITHELIAL CELL UR AURFX 0 /HPF (0-6); WBC, URINE AUTO RFX 0 /HPF (0-3)
[2025-03-14 11:14] LABS: AMPHETAMINES LEVEL URINE NEGATIVE (NEGATIVE); BARBITURATES URINE NEGATIVE (NEGATIVE); BENZODIAZEPINES URINE NEGATIVE (NEGATIVE); COCAINE METABOLITE URINE NEGATIVE (NEGATIVE); METHADONE URINE NEGATIVE (NEGATIVE); PHENCYCLIDINE URINE NEGATIVE (NEGATIVE)
[2025-03-14 11:15] LABS: POTASSIUM SERUM 5.0 MMOL/L (3.5-5.1)
[2025-03-14 11:18] LABS: CANNABINOIDS URINE POSITIVE (NEGATIVE); OPIATES URINE POSITIVE (NEGATIVE)
[2025-03-14 17:00] VITALS: BP 132/75; TEMP 97.6; O2SAT 97
[2025-03-14] MEDS: MESALAMINE 400 MG PO SCH (18:37)
[2025-03-14] MEDS: ACETAMINOPHEN 325 MG TAB PO PRN (18:48)
[2025-03-14 21:00] VITALS: BP 106/57; TEMP 97; O2SAT 94
[2025-03-15 03:10] VITALS: BP 123/83; TEMP 97; O2SAT 94
[2025-03-15 06:16] LABS: PLATELET COUNT, AUTOMATED 346 10^3/uL (150-450)
[2025-03-15 06:18] LABS: CALCIUM LEVEL 8.3 MG/DL (8.5-10.1); CARBON DIOXIDE LEVEL 28 MMOL/L (20-31); CHLORIDE LEVEL 101 MMOL/L (98-107); CREATININE FOR GFR 0.69 MG/DL (0.55-1.30); GLOMERULAR FILTRATION RATE > 90.0 (>51); MAGNESIUM LEVEL 1.9 MG/DL (1.8-2.4); POTASSIUM SERUM 4.2 MMOL/L (3.5-5.1); SODIUM LEVEL 139 MMOL/L (136-145)
[2025-03-15] MEDS: ENOXAPARIN 40 MG/0.4 ML SYRINGE (J1650 PER 10MG) SC SCH (08:26)
[2025-03-15 12:00] VITALS: TEMP 97.3; O2SAT 95
[2025-03-15 20:00] VITALS: BP 127/82; TEMP 97.3; O2SAT 97
[2025-03-16 03:42] VITALS: BP 128/83; TEMP 97; O2SAT 98
[2025-03-16] MEDS: ONDANSETRON 4MG 2ML VIAL IV PRN (03:44)
[2025-03-16 06:25] LABS: PLATELET COUNT, AUTOMATED 317 10^3/uL (150-450)
[2025-03-16 07:00] LABS: CALCIUM LEVEL 9.1 MG/DL (8.5-10.1); CARBON DIOXIDE LEVEL 30 MMOL/L (20-31); CHLORIDE LEVEL 100 MMOL/L (98-107); CREATININE FOR GFR 0.76 MG/DL (0.55-1.30); GLOMERULAR FILTRATION RATE > 90.0 (>51); MAGNESIUM LEVEL 2.0 MG/DL (1.8-2.4); POTASSIUM SERUM 4.6 MMOL/L (3.5-5.1); SODIUM LEVEL 139 MMOL/L (136-145)
[2025-03-16] MEDS ORDERED: MESA50SU PR (10:24)
[2025-03-16] MEDS ORDERED: MESALAMINE 400 MG PO SCH (12:30)
[2025-03-16] MEDS ORDERED: MESALAMINE 1,000 MG SUPP PR SCH (21:00)
== END 2025-03-16 12:02 | disposition home or self-care (01) | DRG 373 ==
LOC: M ED 06:24 → M ED INP 12:31 → M MSPAV 16:07
PROVIDERS: ADMIT Internal Medicine; ATTEND Internal Medicine
DX: A04.72 Enterocolitis due to Clostridium difficile, not specified as recurrent (principal); A08.0 Rotaviral enteritis; K57.90 Diverticulosis of intestine, part unspecified, without perforation or abscess without bleeding; Z79.899 Other long term (current) drug therapy

== ENCOUNTER 2025-07-22 08:58 | Day surgery (SDC) | payer OTHER ==
[~2025-07-22] VITALS: Ht 177.8 cm; Wt 90.7 kg
[~2025-07-22 08:58] MED LIST changes: +GNP1000C11 PO; +MESA1000 PR; +MESA400C2 PO; +MESA50SU PR; +MESA800T8 PO; +OLIVE OIL PO; +OMEG10002 PO; +PEPE50CA PO; +QC F0.52 PO; +SENN-186 PO; +TURM500C10 PO; +[UNRECOGNIZED DRUG - CODE] PO; +[UNRECOGNIZED DRUG - OTHER]
[2025-07-22] MEDS ORDERED: LIDOCAINE 2% 100 MG/5 ML SDV (FOR ANES.) As Ordered ONE (10:39)
[2025-07-22 11:03] VITALS: TEMP 97.5
[2025-07-22] MEDS ORDERED: GLYCOPYRROLATE INJ 0.2 MG/ML 2 ML VIAL As Ordered ONE (11:13)
[2025-07-22] MEDS: ONDANSETRON 4MG/2ML VIAL IV ONE (11:15)
[2025-07-22] MEDS ORDERED: MORPHINE 4 MG/ML 1 ML VIAL IV ONE (11:35)
[2025-07-22] MEDS: KETOROLAC 30 MG/ML 1 ML VIAL IV ONE (12:08)
[2025-07-22 12:25] VITALS: BP 125/65; O2SAT 100
== END 2025-07-22 12:30 | disposition home or self-care (01) ==
LOC: M OPP 08:58
PROVIDERS: ATTEND Internal Medicine Gastroenterology
DX: K62.89 Other specified diseases of anus and rectum (principal); R10.32 Left lower quadrant pain; Z79.899 Other long term (current) drug therapy
CPT/HCPCS: 45380; 88305; J1596; J1885; J2405